=== PATIENT | female | born 1960 | race Hispanic/Latino ===

== ENCOUNTER 2019-03-01 12:17 | Outpatient (CLI) | payer OTHER ==
--- NOTE | 2019-03-01 14:02 | RAD ---
Cervical spine 7 views 03/01/2019 COMPARISON: None HISTORY: Cervical spine pain with muscle spasm, pain radiating down the left arm FINDINGS: Open-mouth odontoid view and Fuchs view demonstrate a normal-appearing C1-2 articulation an d dens. Frontal imaging demonstrates normal vertebral body height and alignment. Oblique imaging demonstrates no significant osteophyte encroachment on the neural foramina on either side at any level. At C4-5 and C5-6 there is mild disc space narrowing and anterior osteophyte formation. No prevertebra l soft tissue swelling. IMPRESSION: Cervical spine degenerative change as above.
== END 2019-03-01 12:18 | disposition home or self-care (01) ==
LOC: BICRAD 12:17
PROVIDERS: ATTEND Family Medicine
DX: M54.2 Cervicalgia (principal); M62.838 Other muscle spasm; M47.812 Spondylosis without myelopathy or radiculopathy, cervical region; V87.7XXA Person injured in collision between other specified motor vehicles (traffic), initial encounter
CPT/HCPCS: 72050